=== PATIENT | male | born 1955 | race Caucasian/White ===

== ENCOUNTER 2016-09-25 14:59 | Emergency (ER) | payer BC ==
[2016-09-25 15:48] LABS: Hematocrit 44.5 % (42.0-52.0); Hemoglobin 15.6 gm/dL (13.5-18.0); Mean Cell Volume 84.9 fl (78-100); Mean Corpuscular Hemoglobin 29.8 pg (27-31); Mean Corpuscular Hgb Conc 35.1 g/dl (32-36); Mean Platelet Volume 8.6 fl (6.0-9.5); Neutrophil # 2.8 K/mm3 (1.3-6.0); Neutrophil % 57.1 % (42-75.0); Platelet Count 170 K/mm3 (150-450); Red Blood Count 5.24 M/mm3 (4.7-6.0); Red Cell Distribution Width 12.1 % (11.5-14.0); White Blood Count 4.9 K/mm3 (4.0-10.5)
[2016-09-25 15:59] LABS: Albumin * 4.5 gm/dl (3.4-5.0); Anion Gap 16.1 mmol/L (6.8-13.8); BUN/Creatinine Ratio 25.8 (9.0-21.6); Bilirubin, Total 0.5 mg/dL (0.0-1.1); Ca. Corrected For Albumin 8.2 mg/dL (8.4-10.2); Calcium * 8.9 mg/dL (7.9-10.9); Carbon Dioxide 25.2 mmol/L (24-32.6); Potassium 3.3 mmol/L (3.4-4.6); Total Protein 7.7 gm/dL (6.2-8.2)
--- NOTE | 2016-09-25 16:06 | ERNOTE ---
Dizziness ER Record Date of Service: 09/25/16 Presenting Symptoms: dizziness Time Seen by Provider: 09/25/16 15:53 Source: patient, family, RN notes reviewed Exam Limitations: no limitations Immunizations: IMMUNIZATION HX Immunizations Up to Date No History of Influenza Vaccine No Hx Pneumococcal Vaccination No Allergies/Adverse Reactions: Allergies Allergy/AdvReac Type Severity Reaction Status Date / Time Penicillins Allergy Hives Verified 09/25/16 15:11 Home Medications: HOME MEDICATIONS Fenofibrate [Lofibra] 160 mg PO DAILY 04/18/13 [Last Taken Unknown] Hydrochlorothiazide [Hydrodiuril] 25 mg PO DAILY 04/18/13 [Last Taken Unknown] Irbesartan [Avapro] 300 mg PO DAILY 04/18/13 [Last Taken Unknown] Simvastatin 10 mg PO DAILY 04/18/13 [Last Taken Unknown] - History of Present Illness Narrative: 61 y/o male to the ED with by private car for an episode of dizziness. This occurred at work just [employer]. He became dizzy suddenly, and also reported nausea and diaphoresis. He reports that he had not been exerting himself or doing anything different from his usual routine. He had eaten lunch about 5 hours before. He was treated for type II diabetes with metformin several years ago, but reports being able to stop the medication after some weight loss. He has since gained the weight back. He was still symptomatic in triage, but the symptoms had resolved by the time I saw him. Date (Duration): 09/25/16 Time (Timing): 15:00 Timing and Duration: sudden onset, gone now Severity: max: moderate Severity: currently: gone Associated Symptoms: Present: nausea, sweating, light headedness. Absent: hearing loss, ringing/roaring in ear, ear pain, vomiting, headache, weakness, numbness, sense of confusion Sense of movement: Present: vague Decreased ability to stand/walk:: Present: walks w/o assistance Usually:: Present: walks w/o assistance Modifying Factors - (Improves): Reports: nothing Modifying Factors - (Worsens): Reports: nothing Prior Treament: Denies: recently seen, similar symptoms before Review of Systems - Review of Systems Constitutional: Absent: recent illness, fever, chills, fatigue EYE: Absent: blurred vision, vision changes ENT: Absent: ear pain, nose congestion Respiratory: Absent: shortness of breath, cough Cardiology: Absent: chest pain, palpitations, syncope Gastrointestinal/Abdominal: Present: nausea. Absent: vomiting, diarrhea, abdominal pain Genitourinary: Absent: frequency, dysuria Musculoskeletal: Present: no symptoms reported Skin: Absent: rash, lesions Neurological: Absent: headache, weakness, numbness, tingling Endocrine: Absent: increased thirst, increased urine Hematologic/Lymphatic: Present: no symptoms reported Psych: Absent: anxiety - Patient's Past Medical History Patient History - Medical: Diabetes Type 2, Obesity Patient History - Cardiac/Respiratory: Hypertension, Hyperlipidemia Patient History - Cancer: No Hx of Cancer Patient History - Surgical Procedures: Other Patient History - Other: None - Social History Living Situations: spouse Smoking Status: Never smoker Alcohol Use: occasionally Drug Use: none - Immunizations Immunizations Up to Date: No Hx Pneumococcal Vaccination: No History of Influenza Vaccine: No Physical Exam - Physical Exam General Appearance: Present: wd/wn, alert, no apparent distress, obese Eye Exam: Normal inspection: bilateral, PERRL: bilateral, EOMI: bilateral Ears, Nose, Throat: Present: normal ENT inspection Neck: Present: normal inspection, nontender, supple, full range of motion Respiratory: Present: no respiratory distress, normal breath sounds, no accessory muscle use, lungs clear Cardiovascular/Chest: Present: regular rate, rhythm, no murmur, normal peripheral pulses Gastrointestinal/Abdominal: Present: normal bowel sounds, nontender, nondistended, soft Extremity Exam: Present: normal inspection, no edema Neurological Exam: Present: alert, oriented, normal mood/affect, no motor/ sensory deficits Skin Exam: Present: normal color, warm/dry ED Progress - Results and Orders Patient's Lab Results:: I have reviewed the patient's lab results. - Vital Signs Patient's Vital Signs:: I have reviewed the patient's vital signs. Vital Signs: Vital Signs 09/25/16 15:06 Temperature 35.8 C L Pulse Rate 72 Respiratory 12 Rate Blood Pressure 135/93 O2 Sat by Pulse 94 Oximetry Orthostatic VS without significant change - EKG EKG: NSR, nonspecific ST T wave changes EKG read: Reviewed by me - Progress/Reassessment Chief Complaint: Dizziness Progress:: Improved Plan - Plan Plan: Experienced another episode of dizziness at discharge - EKG obtained and accucheck was 104, symptoms resolved quickly, reports were less severe than before. Discussed need for f/u with PCP to recheck labwork. Agreeable to returning if symptoms worsen. Departure Clinical Impression: Dizziness of unknown cause - Departure Disposition: Home Follow Up Needed Condition: Stable Instructions: Dizziness, [id number] Additional Instructions: Schedule recheck with Dr. Noe Return for worsening symptoms Referrals: Manju Noe MD [Primary Care Provider] -
--- OUTSIDE RECORDS SUMMARY | 2016-09-25 16:12 | XMS REPORT | Continuity of Care Document ---
:1955 Author Organization [facility] ([facility]) [place] [address] Phone [phone] Care Team Providers Name Role Phone Provider, No-Primary Care Primary Care Provider Unavailable Source Comments This disclosure is being made pursuant to the Care Everywhere program, applicable federal and state laws, and may not contain all informaitonavailable regarding this patient.[facility] ([facility]) Active Allergies and Adverse Reactions Not on File Current Medications Not on file Active Problems Not on file Social History Tobacco Use Types Packs/Day Years Used Date Never Assessed Plan of Care Health Maintenance Due Date Last Done Comments HCV Screening 1955 Hepatitis B Vaccine (1 of 3 - Primary Series) 1955 Tdap Vaccine 1968 Lipid Disorder Screening 1975 MMR Vaccine 1975 Td Vaccine 1975 Colonoscopy 2007 Prostate Cancer Screening 2007 Influenza Vaccine: Seasonal (#1) 02/11/2016 Results from Last 3 Months Not on file
[2016-09-25 16:14] VITALS: BP 129/86
== END 2016-09-25 17:09 | disposition home or self-care (01) ==
LOC: ER 14:59
DX: R42 Dizziness and giddiness (principal); E78.5 Hyperlipidemia, unspecified; I10 Essential (primary) hypertension